=== PATIENT | male | born 1990 | race Caucasian/White ===

== ENCOUNTER 2016-06-12 10:18 | Emergency (ER) | payer OTHER ==
[2016-06-12 12:28] VITALS: BP 122/64
--- NOTE | 2016-06-12 12:29 | UC ---
Ear Complaint HPI - HPI Summary HPI Summary: pain right ear for a few days. Feels "full", can't hear well, pops with swallowing. No fever. Mild URI symptoms for past few days, no cough but sinus congestion. No ear trauma or recent flights - History of Current Complaint Chief Complaint: UCEar Stated Complaint: RIGHT EAR PAIN Time Seen by Provider: 06/12/16 11:43 Hx Obtained From: Patient Onset/Duration: Gradual Onset Severity Initially: Mild Severity Currently: Mild Aggravating Factors: Nothing Alleviating Factors: Nothing Associated Signs/Symptoms: Positive: Hearing Loss, Foreign Body Sensation, URI Symptoms. Negative: Discharge, Trauma to Ear, Swelling @ - Allergies/Home Medications Allergies/Adverse Reactions: Allergies Allergy/AdvReac Type Severity Reaction Status Date / Time Azithromycin [From Zithromax] Allergy Severe Hives Verified 06/12/16 12:11 Cefaclor [From Ceclor] Allergy Severe Hives Verified 06/12/16 12:11 PMH/Surg Hx/FS Hx/Imm Hx Cardiovascular History Of: Reports: Cardiac Disorders - holiday heart age 24 - Surgical History Surgical History: Yes Surgery Procedure, Year, and Place: tonsilectomy - Family History Known Family History: Positive: Hypertension - Social History Occupation: Employed Full-time Lives: With Family Alcohol Use: Weekly Substance Use Type: None Substance Use Comment - Amount & Last Used: smoked marijuana daily until 10/2014 Smoking Status (MU): Never Smoked Tobacco Type: Cigarettes Amount Used/How Often: 1 CIG PER WK Length of Time of Smoking/Using Tobacco: 2 YRS Review of Systems Constitutional: Negative Skin: Negative Eyes: Negative ENT: Ear Ache, Nasal Discharge Respiratory: Negative Cardiovascular: Negative Gastrointestinal: Negative Genitourinary: Negative Motor: Negative Neurovascular: Negative Musculoskeletal: Negative Neurological: Negative Psychological: Negative All Other Systems Reviewed And Are Negative: Yes Physical Exam Triage Information Reviewed: Yes Appearance: Well-Appearing, No Pain Distress, Well-Nourished Vital Signs: Initial Vital Signs Temp 99.1 F 06/12/16 12:12 Pulse 75 06/12/16 12:12 Resp 16 06/12/16 12:12 BP 122/64 06/12/16 12:12 Pulse Ox 100 06/12/16 12:12 Vital Signs Reviewed: Yes Eye Exam: Normal Eyes: Positive: Conjunctiva Clear ENT: Positive: Hearing grossly normal, Pharynx normal, Pharyngeal erythema - mild, TM dull, TM red - right side, retracted. Negative: Nasal congestion, Nasal drainage, Tonsillar swelling, Tonsillar exudate, Trismus, Muffled/hoarse voice Neck exam: Normal Respiratory Exam: Normal Cardiovascular Exam: Normal Musculoskeletal Exam: Normal Neurological Exam: Normal Psychological Exam: Normal Skin Exam: Normal Ear Complaint Course/Dx - Differential Dx/Diagnosis Differential Diagnosis/HQI/PQRI: Otitis Externa, Otitis Media, URI Provider Diagnoses: right OM Discharge - Discharge Plan Condition: Stable Disposition: HOME Prescriptions: Sulfamethox/Trimethoprim DS* [Bactrim DS 800/160 TAB*] 1 tab PO BID #20 tab Patient Education Materials: Otitis Media (ED) Referrals: Robert Moran MD [Primary Care Provider] -
== END 2016-06-12 12:39 | disposition home or self-care (01) ==
LOC: UCCORT 10:18
DX: H66.91 Otitis media, unspecified, right ear (principal); I49.8 Other specified cardiac arrhythmias
CPT/HCPCS: 99212; G0463

== ENCOUNTER 2018-05-11 16:41 | Emergency (ER) | payer BC, OTHER ==
[2018-05-11 17:08] VITALS: BP 139/85
--- NOTE | 2018-05-11 17:32 | UC ---
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 NO FEVER/CHILLS. ALSO WANTS STD TESTING. " +allergies to zpack and ceclor both causing rash + oral sex 5 d ago. no dc. no known STD exposure. mild erythema. increased urine freq but states he has been drinking more water bc he has been paranoid. -only wants GC/chlam testing done. - History of Current Complaint Chief Complaint: UCGU Stated Complaint: URINARY Time Seen by Provider: 05/11/18 17:25 Pain Intensity: 1 - Allergies/Home Medications Allergies/Adverse Reactions: Allergies Allergy/AdvReac Type Severity Reaction Status Date / Time azithromycin Allergy Hives Verified 05/11/18 17:03 cefaclor [From Ceclor] Allergy Hives Verified 05/11/18 17:03 PMH/Surg Hx/FS Hx/Imm Hx Previously Healthy: Yes - Surgical History Surgical History: Yes Surgery Procedure, Year, and Place: tonsilectomy - Family History Known Family History: Positive: Hypertension - Social History Alcohol Use: Weekly Substance Use Type: None Substance Use Comment - Amount & Last Used: smoked marijuana daily until 10/2014 Smoking Status (MU): Light Every Day Tobacco Smoker Type: Cigarettes Amount Used/How Often: 1 CIG PER WK Length of Time of Smoking/Using Tobacco: 2 YRS Household Exposure Type: Cigarettes Review of Systems All Other Systems Reviewed And Are Negative: Yes Constitutional: Positive: Negative Skin: Positive: Negative Eyes: Positive: Negative ENT: Positive: Negative Respiratory: Positive: Negative Cardiovascular: Positive: Negative Gastrointestinal: Positive: Negative Genitourinary: Positive: Frequency. Negative: Dysuria, Vaginal/Penile Burning, Vaginal/Penile Discharge Motor: Positive: Negative Neurovascular: Positive: Negative Musculoskeletal: Positive: Negative Neurological: Positive: Negative Psychological: Positive: Negative Is Patient Immunocompromised?: No Physical Exam Triage Information Reviewed: Yes Appearance: Well-Appearing, No Pain Distress, Well-Nourished Vital Signs: Initial Vital Signs Temp 98.4 F 05/11/18 17:03 Pulse 80 05/11/18 17:03 Resp 16 05/11/18 17:03 BP 139/85 05/11/18 17:03 Pulse Ox 100 05/11/18 17:03 Vital Signs Reviewed: Yes Eye Exam: Normal ENT Exam: Normal ENT: Positive: Pharynx normal Neck exam: Normal Respiratory Exam: Normal Respiratory: Positive: Lungs clear, Normal breath sounds Cardiovascular Exam: Normal Cardiovascular: Positive: RRR Abdomen Description: Positive: Nontender, Soft Musculoskeletal Exam: Normal Neurological Exam: Normal Psychological Exam: Normal Skin Exam: Normal Complaint Male Course/Dx - Course Course Of Treatment: UA. -urine test for GC/chlam. + allergy to ceclor and zpack. -treat w/ doxy 100mg po bid x 7d. as aletrnate to azithromax for chlamydia coverage. -there is no good alternative for cephalosporin for GC coverage (azithromycin + gemfloxicin is recommended 320mgs po x 1 or gentamicin IM 240mgs). he does not have dc. if GC is positive, recommend f/u at ER for treatment for GC. we do not have gentamicin available here. - Differential Dx/Diagnosis Differential Diagnosis/HQI/PQRI: Prostatitis, Urinary Tract Infection, Other - GC/chlam Provider Diagnosis: Urethritis, nonspecific Discharge - Sign-Out/Discharge Documenting (check all that apply): Patient Departure All imaging exams completed and their final reports reviewed: No Studies - Discharge Plan Condition: Stable Disposition: HOME Prescriptions: Doxycycline Monohydrate 100 mg PO BID #14 cap Patient Education Materials: Nonspecific Urethritis in Men (ED) Referrals: Robert Moran MD [Primary Care Provider] - 5 Days Additional Instructions: Make sure to take a probiotic daily while on antibiotics to help prevent a potential complication of antibiotic use called c diff. Some well known brands that can be found OTC are florastor, align and [employer] [facility]. Make sure to complete the entire prescription unless advised otherwise by your health care provider. -please call us in 2-3 days for the results of the gonorrhea and chlamydia. We discussed that the doxycyline covers chlamydia, but not gonorrhea. If the gonorrhea is positive, you will have to go to the ER for gentamicin injection ( antibiotic). - Billing Disposition and Condition Condition: STABLE Disposition: Home
== END 2018-05-11 18:05 | disposition home or self-care (01) ==
LOC: UCCORT 16:41
DX: N34.2 Other urethritis (principal); Z88.1 Allergy status to other antibiotic agents; F17.210 Nicotine dependence, cigarettes, uncomplicated
CPT/HCPCS: 81003; 87491; 87591; 99212; G0463